=== PATIENT | female | born 1940 | race Caucasian/White ===

== ENCOUNTER 2017-08-04 08:54 | Emergency (ER) | payer OTHER ==
[~2017-08-04] VITALS: Ht 157.5 cm; Wt 72.7 kg
[~2017-08-04 08:54] MED LIST: ALPRAZOLAM0.5 MG PO; AMITRIPTYLINE H25 MG PO; ASPIR-LOW81 MG PO; ATENOLOL50 MG PO; CIPRO500 MG PO; CLEOCIN300 MG PO; DICYCLOMINE HCL10 MG PO; FENOFIBRATE145 M1 PO; FENOFIBRATE160 M1 PO; HUMULIN 70100 UNIT/2 SC; K-DUR10 MEQ; KLOR-CON M1010 MEQ PO; LEVETIRACETAM250 MG PO; LOSARTAN POTASS25 MG PO; METFORMIN HCL1000 MG PO; METFORMIN HCL500 MG PO; NOVOLOG MI100 UNIT/4 SC; ONDANSETRON ODT4 MG PO; PANTOPRAZOLE SO40 MG PO; PRAVASTATIN SOD80 MG PO; PREMARIN0.3 MG PO; SIMVASTATIN40 MG PO; TRAVATAN Z5 ML BOTH EYES; ZOFRAN ODT4 MG PO
[2017-08-04 10:03] LABS: HEMATOCRIT 36.1 % (36.0-46.0); HEMOGLOBIN 12.6 G/DL (11.9-15.5); MCH 29.1 PG (29.0-34.0); MCHC 34.9 G/DL (30.0-36.0); MCV 83.4 FL (83-99); PLATELET COUNT 194 K/uL (156-360); RBC DIS.WIDTH-CV 11.8 % (11.8-14.6); RBC DIS.WIDTH-SD 35.8 % (39-53); RED BLOOD COUNT 4.33 M/uL (3.80-5.20); WHITE BLOOD COUNT 11.8 K/uL (4.1-10.2)
[2017-08-04 10:15] LABS: CHLORIDE 95 mEq/L (99-109); POTASSIUM 3.9 mEq/L (3.7-5.4); SODIUM 133 mEq/L (136-147)
[2017-08-04 10:16] LABS: GLUCOSE 389 mg/dL (70-99)
[2017-08-04 10:20] LABS: CREATININE 0.9 mg/dL (0.6-1.3); GFR ESTIMATE (CALCULATED) > 59 mL/min/
[2017-08-04 10:21] LABS: UREA NITROGEN (BUN) 8 mg/dL (9-23)
[2017-08-04 10:39] LABS: INTER. NORMALIZED RATIO 1.2
[2017-08-04 10:41] LABS: PTT 28.2 SEC (25-37)
[2017-08-04 10:54] LABS: APPEARANCE SL.HAZY ((CLEAR)); BILIRUBIN NEGATIVE; BLOOD SMALL; COLOR YELLOW ((YELLOW)); GLUCOSE (STRIP) >=500; KETONES 5; LEUKOCYTES SMALL; NITRITE NEGATIVE; PROTEIN (STRIP) NEGATIVE; SPECIFIC GRAVITY 1.014 (1.000-1.030)
[2017-08-04 11:10] LABS: RED BLOOD CELLS RARE /HPF (0-5)
[2017-08-04 11:11] LABS: BACTERIA 3+ /HPF; EPITHELIAL CELLS RARE /HPF; MUCUS NONE SEEN /LPF; UCUL ADDED? YES
[2017-08-04] MEDS ORDERED: CIPRO500 MG PO (12:23)
[2017-08-04 13:06] VITALS: BP 172/84
== END 2017-08-04 13:10 | disposition home or self-care (01) ==
LOC: EME 08:54
PROVIDERS: Family Medicine
DX: N39.0 Urinary tract infection, site not specified (principal); E11.9 Type 2 diabetes mellitus without complications; F32.9 Major depressive disorder, single episode, unspecified; E78.5 Hyperlipidemia, unspecified; I10 Essential (primary) hypertension; F41.9 Anxiety disorder, unspecified
CPT/HCPCS: 80048; 81003; 82948; 85027; 85610; 85730; 87077; 87086; 87186; 99281; 99284